=== PATIENT | female | born 1950 | race African-American/Black ===

== ENCOUNTER 2020-06-28 04:49 | Day surgery (SDC) | payer OTHER, BC ==
--- NOTE | 2020-06-27 14:35 | HP ---
Satellite H - Chief Complaint Chief Complaint: right hand pain and locking - Past Medical History Allergies/Adverse Reactions: Allergies Allergy/AdvReac Type Severity Reaction Status Date / Time No Known Allergies Allergy Verified 06/28/20 06:25 - Current Medications Current Medications: Home Medications Medication Instructions Recorded Atorvastatin Ca [Lipitor] 20 mg PO HS 06/27/20 Dapagliflozin/Metformin HCl 1 each PO DAILY 06/27/20 [Xigduo Xr 5 mg-1,000 mg Tablet] Hydrocodone/Acetaminophen 1 each PO Q6H #20 tablet MDD 4 06/28/20 [Hydrocodone-Acetamin 5-325 mg] Satellite Physical Exam - Physical Examination General Appearance: Well Nourished, Well Developed, Alert & Oriented x3 ENT: Clear Lung: Normal air movement Extremities: Other (right hand- + ttp a1 andrea or middle and ring finger, + locking, nvi) Neurological: Intact, Alert, Oriented Satellite Impression/Plan - Impression/Plan Impression: right 3rd and 4th trigger fingers Operative Procedure: right 3rd and 4th trigger release Date to be Performed: 06/27/20
[2020-06-27 15:41] VITALS: BMI 22.8
[2020-06-28] MEDS ORDERED: LIDOCAINE HCL 1%, 10 MG/ML (20ML VIAL) ONE (07:11)
[2020-06-28] MEDS ORDERED: BUPIVACAINE HCL 0.5% 250 MG/50 ML VIAL IJ ONE ×2 (07:31)
[2020-06-28] MEDS ORDERED: LIDOCAINE HCL 1%, 10 MG/ML (20ML VIAL) NR ONE ×2 (07:32)
[2020-06-28] MEDS ORDERED: EPHEDRINE SULFATE/0.9% NACL/PF 50 MG/10 ML SYRINGE NR ONE (07:33)
[2020-06-28] MEDS ORDERED: ceFAZolin SODIUM 1 GM VIAL ONE (07:33)
[2020-06-28] MEDS ORDERED: LIDOCAINE HCL/PF 2% SDV 5ML VIAL ONE (07:33)
[2020-06-28] MEDS ORDERED: KETOROLAC TROMETHAMINE 30 MG/1 ML VIAL ONE (07:33)
[2020-06-28] MEDS ORDERED: PROPOFOL 20 ML ONE ×3 (07:33→08:51)
[2020-06-28] MEDS ORDERED: DEXAMETHASONE SOD PHOSPHATE 4 MG/1 ML VIAL ONE (07:33)
[2020-06-28] MEDS ORDERED: SUCCINYLCHOLINE CHLORIDE 200 MG/10 ML SYRINGE ONE (07:34)
[2020-06-28] MEDS ORDERED: MIDAZOLAM HCL 2 MG/2 ML SINGLE DOSE VIAL ONE (07:34)
[2020-06-28] MEDS ORDERED: GLYCOPYRROLATE 0.2 MG/1 ML VIAL ONE (07:46)
[2020-06-28] MEDS ORDERED: ceFAZolin SODIUM 1 GM VIAL IVPB ONE (08:18)
[2020-06-28] MEDS ORDERED: ONDANSETRON 4 MG/2 ML VIAL IVPUSH PRN (09:00)
[2020-06-28] MEDS ORDERED: oxyCODONE HCL 5 MG TABLET PO PRN (09:00)
[2020-06-28] MEDS ORDERED: LACTATED RINGERS SOLUTION 1,000 ML IV SCH (09:00)
--- NOTE | 2020-06-28 09:17 | OP ---
Operative Note - Note: Operative Date: 06/28/20 Pre-Operative Diagnosis: right hand middle and ring trigger fingers Operation: right hand middle and ring trigger finger releases, tendon sheath excisions Post-Operative Diagnosis: Same as Pre-op Surgeon: Bentley Alexander Anesthesiologist/COMMISSIONING MANAGER: Payal Rodriges Anesthesia: Local, MAC Specimens Removed: tendon sheaths x 2 Estimated Blood Loss (mls): 0 Drains, Volume Out (mls): 0 Blood Volume Replaced (mls): 0 Fluid Volume Replaced (mls): 500 Operative Report Dictated: Yes
--- NOTE | 2020-06-28 13:03 | OP ---
DATE OF OPERATION: 06/28/2020 PREOPERATIVE DIAGNOSIS: Right middle and ring finger trigger finger. POSTOPERATIVE DIAGNOSIS: Right middle and ring finger trigger finger. PROCEDURE: Right middle and ring finger trigger finger release. SURGEON: Dulce Briceno MD SUPERVISOR FURNACE PROCESS: None. REFRIGERATING ENGINEER: SUMIT Ontiveros-AJAY ANESTHESIA: MAC anesthesia, local injection of 15 mL 0.5% Marcaine, 1% lidocaine mixed. DRAINS: None. COMPLICATIONS: None. SPECIMEN: Tendon sheath, right middle and ring finger. BLOOD LOSS: None. BLOOD GIVEN: None. FLUID REPLACEMENT: Plasmalyte 500 mL. INDICATION: This patient is a 70-year-old female with a preoperative diagnosis of severe recurrent right middle and ring finger trigger fingers. Also, she has significant stiffness secondary to the trigger fingers of the ring and middle fingers. She understands the potential risks, complications, alternatives, and benefits of surgery versus nonsurgical treatment. She also understands that when we do the release, it will not change the ability of her fingers to move. She needs to stretch through that tight stiffness in order to regain her range of motion. She may need physical therapy. She understands that. PROCEDURE: The patient was brought to the operating room, IV was placed, IV sedation was given. Two grams of intravenous Ancef given. A tourniquet was applied to the right upper arm and the right upper extremity was prepped and draped in sterile fashion. The entire case was done under 3.8 loupe magnification. A marking pen was utilized to goran out a longitudinal incision in an already existing skin crease at the base of the right middle and ring finger. Then 10 mL of 0.5% Marcaine mixed with 1% lidocaine was injected in and around the incision. The right upper extremity was elevated, exsanguinated with an Esmarch bandage and the tourniquet inflated to 250 mmHg. A No. 15 scalpel blade was utilized to cut down through the skin. Subcutaneous hemostasis was achieved with the bipolar cautery. Additional dissection was done with Littler scissors until I was able to directly visualize the A1 andrea sheath in its entirety. Self-retaining retractors were placed into the wound. A Tabor elevator was used to free up the tissue on the radial side, the ulnar side distally and proximally under better visualization of A1 andrea sheath. Next, using a fresh No. 15 scalpel blade, I excised the central one-third of the A1 andrea sheath and passed it off the field as specimen, tendon sheath, middle and ring finger. I then completed the release, both distally and proximally, and brought the FDS and FDP tendons out through the wound with a Ragnell retractor. There were no abnormal points of compression. I was able to move the middle and ring finger without the tendons bunching up at all. The area was then copiously irrigated and washed out. I then checked one more time to make sure there were no abnormal points of compression. None were seen and therefore closure was begun. One stitch using 4-0 Vicryl was used in the deep dermal layer. Skin was reapproximated with 4-0 nylon sutures in a horizontal mattress fashion. The area was then washed and dried, covered with Xeroform gauze, sterile 4 x 4's, fluffs between the fingers, Webril and Coban. The tourniquet was taken down after a total tourniquet time of 21 minutes. There were no complications during the case. The patient tolerated the procedure well and was brought to the Ambulatory Recovery Room in stable condition. DULCE BRICENO M.D. [id number]
[2020-06-28 15:00] VITALS: BP 116/70; PULSE 80; TEMP 97.8
--- NOTE | 2020-06-29 17:32 | PATH ---
Surgical Pathology Report Patient Name: LISA GARCIA [facility]. Rec. #: [id number] /Age/Gender: 1950 (Age: 70) / F Account: [id number] Location: [facility] SURGICAL Taken: 06/26/2020 Received: 06/28/2020 Reported: 06/29/2020 Physicians: Bentley Alexander M.D. Specimen(s) Received TENDON SHEATH Clinical History Trigger release Final Diagnosis TENDON SHEATH, HAND, RIGHT, MIDDLE AND RING FINGER, TRIGGER FINGER RELEASE: BENIGN DENSE FIBROCONNECTIVE TISSUE. Electronically Signed Gabriela Cole M.D. Gross Description Received in formalin labeled "tendon sheath" is a white-zhang soft tissue measuring 0.8 x 0.5 x 0.3 cm. The specimen is entirely submitted in one cassette. MLSZ/06/28/2020 san[facility]/06/28/2020
== END 2020-06-28 11:15 | disposition home or self-care (01) ==
LOC: JASU-SURG 04:49
PROVIDERS: ATTEND Orthopaedic Surgery
PROC: 0LN70ZZ Release Right Hand Tendon, Open Approach (ICD-10-PCS; 2020-06-28)
PROC: 0LN70ZZ Release Right Hand Tendon, Open Approach (ICD-10-PCS; principal; 2020-06-28 08:00)
DX: M65.331 Trigger finger, right middle finger (principal); M65.351 Trigger finger, right little finger
CPT/HCPCS: 82962; 88304-TC